=== PATIENT | male | born 1995 | race Caucasian/White ===

== ENCOUNTER 2019-10-16 17:15 | Emergency (ER) | payer SELFPAY ==
[~2019-10-16] VITALS: Ht 170.2 cm; Wt 63.5 kg
[2019-10-16 17:18] VITALS: BP 108/62
--- NOTE | 2019-10-16 17:20 | NUR ---
PT SENT TO ER LOBBY TO WAIT FOR AVAILABLE BED IN ER.
--- NOTE | 2019-10-16 19:30 | NUR ---
PT WASCALLED FROM LOBBY, NO ANSWER, LWBS
--- NOTE | 2019-10-16 19:35 | NUR ---
PT CALLED FROM LOBBY, NO ANSWER LWBS
--- NOTE | 2019-10-16 19:35 | NUR ---
PATIENT LEFT WITHOUT BEING SEEN BY DR. GILBERT. NO FURTHER CARE PROVIDED FOR PATIENT.
== END 2019-10-16 19:30 | disposition left against medical advice (07) ==
LOC: MED 17:15
DX: M54.5 Low back pain (principal); Z53.21 Procedure and treatment not carried out due to patient leaving prior to being seen by health care provider; V09.9XXA Pedestrian injured in unspecified transport accident, initial encounter; Y93.89 Activity, other specified; Y92.89 Other specified places as the place of occurrence of the external cause; Y99.8 Other external cause status
CPT/HCPCS: 72100; 99281